=== PATIENT | male | born 1950 | race Caucasian/White ===

== ENCOUNTER 2016-08-24 08:01 | Day surgery (SDC) | payer OTHER ==
[~2016-08-24] VITALS: Ht 180.3 cm; Wt 81.0 kg
[~2016-08-24 08:01] MED LIST: ASPI-496 PO; BENA10TA2 PO; BUPIVACAINE/PF-EPI 0.5% 1:200K ONE; SIMV40TA3 PO
[2016-08-24 08:37] VITALS: BP 128/93
[2016-08-24] MEDS ORDERED: LACTATED RINGERS 1,000 ML IV SCH (08:42)
[2016-08-24 09:24] LABS: ASPARTATE AMINO TRANSFERASE 19 U/L (15-37); BLOOD UREA NITROGEN 13 mg/dL (7-18)
[2016-08-24] MEDS ORDERED: FENTANYL PF 250 MCG/5ML ONE (12:02)
[2016-08-24] MEDS ORDERED: OXYcodone 5 MG/5 ML ORAL.SOL UDC PO PRN (13:00)
[2016-08-24] MEDS ORDERED: FENTANYL PF 100 MCG/2ML IV PRN (13:00)
[2016-08-24] MEDS ORDERED: HYDROmorphone 1 MG/ML, 1ML IV PRN (13:00)
[2016-08-24] MEDS ORDERED: ACETAMINOPHEN 325 MG TABLET PO PRN (13:00)
[2016-08-24] MEDS ORDERED: METOPROLOL 1 MG/ML, 5ML IV PRN (13:00)
[2016-08-24] MEDS ORDERED: ALBUTEROL SULFATE 2.5 MG/3 ML NPPB PRN (13:00)
[2016-08-24] MEDS ORDERED: PROMETHAZINE 25 MG/ML, 1ML IV PRN (13:00)
[2016-08-24] MEDS ORDERED: hydrALAzine 20 MG/ML, 1ML IV PRN (13:00)
[2016-08-24] MEDS ORDERED: OXYcodone 5 MG/5 ML ORAL.SOL UDC ONE (14:20)
[2016-08-24] MEDS ORDERED: PROMETHAZINE 25 MG/ML, 1ML ONE (14:20)
[2016-08-24] MEDS ORDERED: ROCURONIUM 10 MG/ML ONE (16:11)
[2016-08-24] MEDS ORDERED: ONDANSETRON 2MG/ML, 2ML ONE (16:11)
[2016-08-24] MEDS ORDERED: CEFAZOLIN 1,000 MG ONE (16:11)
[2016-08-24] MEDS ORDERED: PROPOFOL 10 MG/ML, 20ML ONE (16:11)
[2016-08-24] MEDS ORDERED: KETOROLAC 30 MG/1 ML ONE (16:11)
[2016-08-24] MEDS ORDERED: DEXAMETHASONE 4 MG/ML, 1ML ONE (16:11)
== END 2016-08-24 15:40 ==
LOC: OUT 08:01 → EDSTATUS 12:00 → OUT 15:40
PROVIDERS: ATTEND Surgery
DX: C43.59 Malignant melanoma of other part of trunk (principal); L76.32 Postprocedural hematoma of skin and subcutaneous tissue following other procedure; Y83.8 Other surgical procedures as the cause of abnormal reaction of the patient, or of later complication, without mention of misadventure at the time of the procedure; Y82.8 Other medical devices associated with adverse incidents; F17.200 Nicotine dependence, unspecified, uncomplicated
CPT/HCPCS: 10140; 36415; 78195; 80053; 85025; 85610; 88305; 88307; 88342; 93005; A9541; J0690; J1100; J1885; J2405; J2550; J2704; J3010; J7120; G0461

== ENCOUNTER 2016-08-24 17:16 | Inpatient (IN) | payer OTHER, MEDICARE ==
[~2016-08-24] VITALS: Ht 180.3 cm; Wt 75.0 kg
[~2016-08-24 17:16] MED LIST changes: -BUPIVACAINE/PF-EPI 0.5% 1:200K ONE
[2016-08-24] MEDS ORDERED: SODIUM CHLORIDE 0.9%, 500ML IVBOLUS ONE (18:00)
[2016-08-24] MEDS ORDERED: THROMBIN 5,000 UNIT VIAL TP ONE (18:12)
[2016-08-24 18:15] VITALS: BP 120/81
[2016-08-24] MEDS ORDERED: SUCCINYLCHOLINE 20 MG/ML, 10ML ONE (18:29)
[2016-08-24] MEDS ORDERED: PROPOFOL 10 MG/ML, 20ML ONE (18:29)
[2016-08-24] MEDS ORDERED: ONDANSETRON 2MG/ML, 2ML ONE (18:29)
[2016-08-24] MEDS ORDERED: CEFAZOLIN 1,000 MG ONE (18:29)
[2016-08-24] MEDS ORDERED: FENTANYL PF 100 MCG/2ML ONE ×2 (18:30→19:11)
[2016-08-24] MEDS ORDERED: PROMETHAZINE 25 MG/ML, 1ML IV PRN (19:00)
[2016-08-24] MEDS ORDERED: HYDROmorphone 1 MG/ML, 1ML IV PRN (19:00)
[2016-08-24] MEDS ORDERED: hydrALAzine 20 MG/ML, 1ML IV PRN (19:00)
[2016-08-24] MEDS ORDERED: METOPROLOL 1 MG/ML, 5ML IV PRN (19:00)
[2016-08-24] MEDS ORDERED: OXYcodone 5 MG/5 ML ORAL.SOL UDC PO PRN (19:00)
[2016-08-24] MEDS ORDERED: ACETAMINOPHEN 325 MG TABLET PO PRN (19:00)
[2016-08-24] MEDS ORDERED: FENTANYL PF 100 MCG/2ML IV PRN (19:00)
[2016-08-24] MEDS ORDERED: MORPHINE SULFATE 4 MG/ML, 1ML IV PRN (21:00)
[2016-08-24] MEDS ORDERED: SODIUM CHLORIDE 0.9% 1,000 ML IV SCH (21:00)
[2016-08-24] MEDS ORDERED: HYDROcodone/APAP 5/325 TABLET PO PRN (21:00)
[2016-08-24] MEDS ORDERED: ONDANSETRON 2MG/ML, 2ML IV PRN (21:00)
== END 2016-08-24 22:19 | disposition home or self-care (01) | DRG 909 ==
LOC: ED 17:42 → EDIP 18:13 → 4NOR 20:30
PROVIDERS: ADMIT Surgery; ATTEND Surgery
PROC: 0W3K0ZZ Control Bleeding in Upper Back, Open Approach (ICD-10-PCS; principal; 2016-08-24 17:15)
DX: L76.32 Postprocedural hematoma of skin and subcutaneous tissue following other procedure (principal); Y83.8 Other surgical procedures as the cause of abnormal reaction of the patient, or of later complication, without mention of misadventure at the time of the procedure; Y92.89 Other specified places as the place of occurrence of the external cause
CPT/HCPCS: 99285; J0690; J2405; J2704; J3010; J0330; J7040

== ENCOUNTER 2017-02-08 10:55 | Emergency (ER) | payer MEDICARE, OTHER ==
[~2017-02-08] VITALS: Ht 180.3 cm; Wt 83.3 kg
[2017-02-08 11:53] LABS: BASOPHILS # (AUTO) 0.06 x10^3/uL (0-0.1); BASOPHILS % (AUTO) 1 % (0-1); EOSINOPHILS # (AUTO) 0.37 x10^3/uL (0-0.4); EOSINOPHILS % (AUTO) 4 % (1-7); LYMPHOCYTES # (AUTO) 2.56 x10^3/uL (1-3.4); LYMPHOCYTES % (AUTO) 27 % (22-44); MD NO; MEAN CORPUSCULAR HEMOGLOBIN 30.9 pg (27.5-34.5); MEAN CORPUSCULAR HGB CONC 33.6 g/dL (33.2-36.2); MEAN CORPUSCULAR VOLUME 92.2 fL (81-97); MEAN PLATELET VOLUME 7.9 fL (7.4-10.4); MONOCYTES # (AUTO) 0.69 x10^3/uL (0.2-0.8); MONOCYTES % (AUTO) 7 % (2-9); NEUTROPHILS # (AUTO) 5.94 x10^3/uL (1.8-6.8); NEUTROPHILS % (AUTO) 62 % (42-75); PLATELET COUNT 392 x10^3/uL (130-400); RED BLOOD COUNT 4.89 x10^6/uL (4.38-5.82); RED CELL DISTRIBUTION WIDTH 14.2 % (9.4-14.8)
[2017-02-08 12:04] LABS: ALBUMIN 4.2 g/dL (3.4-5.0); ANION GAP 6 mmol/L (5-15); CALCIUM 9.1 mg/dL (8.5-10.1); CHLORIDE 107 mmol/L (98-107); CREATININE 0.89 mg/dL (0.7-1.3)
[2017-02-08 12:08] LABS: TROPONIN I < 0.015 ng/mL (0.000-0.045)
[2017-02-08 13:19] VITALS: BP 132/84
== END 2017-02-08 13:21 | disposition home or self-care (01) ==
LOC: ED 11:27
DX: R07.89 Other chest pain (principal)
CPT/HCPCS: 36415; 71045; 80048; 82040; 84484; 85025; 93005; 99285

== ENCOUNTER 2017-10-03 05:11 | Day surgery (SDC) | payer MEDICARE, OTHER ==
[~2017-10-03] VITALS: Ht 180.3 cm; Wt 181.0 kg
[~2017-10-03 05:11] MED LIST changes: -BENA10TA2 PO; +BENA10TA4 PO
[2017-10-03] MEDS ORDERED: CEFAZOLIN PMX 1GM/50ML 50 ML ONE (05:27)
[2017-10-03] MEDS ORDERED: ONDANSETRON ODT 4 MG ONE (05:27)
[2017-10-03] MEDS ORDERED: LIDOCAINE 1%-EPI 1:100K, 30ML ONE (05:27)
[2017-10-03] MEDS ORDERED: MORPHINE SULFATE 4 MG/ML, 1ML ONE ×2 (05:27→07:06)
[2017-10-03] MEDS ORDERED: ONDANSETRON ODT 4 MG PO ONE (05:30)
[2017-10-03] MEDS ORDERED: MORPHINE SULFATE 4 MG/ML, 1ML IVPush PRN (05:30)
[2017-10-03] MEDS ORDERED: SODIUM CHLORIDE FLUSH 10ML SYR IVF ONE (05:30)
[2017-10-03] MEDS ORDERED: CEFAZOLIN PMX 1GM/50ML 50 ML IVPB ONE (05:30)
[2017-10-03] MEDS ORDERED: LIDOCAINE 1%-EPI 1:100K, 30ML INFIL ONE (05:30)
[2017-10-03 09:01] VITALS: BP 123/89
[2017-10-03] MEDS ORDERED: MIDAZOLAM 1 MG/ML, 2ML ONE (09:09)
[2017-10-03] MEDS ORDERED: FENTANYL PF 100 MCG/2ML ONE ×2 (09:10→12:10)
[2017-10-03] MEDS ORDERED: HYDROcodone/APAP 7.5-325MG/15ML UDC PO PRN (10:00)
[2017-10-03] MEDS ORDERED: MEPERIDINE/PF 25MG/0.5ML IVPush PRN (10:00)
[2017-10-03] MEDS ORDERED: LABETALOL 5MG/ML, 20ML IV PRN (10:00)
[2017-10-03] MEDS ORDERED: PROCHLORPERAZINE 5 MG/ML, 2ML IV PRN (10:00)
[2017-10-03] MEDS ORDERED: FENTANYL PF 100 MCG/2ML IV PRN (10:00)
[2017-10-03] MEDS ORDERED: HYDROmorphone 1 MG/ML, 1ML IV PRN (10:00)
[2017-10-03] MEDS ORDERED: DIPHENHYDRAMINE 50 MG/ML, 1ML IVPush PRN (10:00)
[2017-10-03] MEDS ORDERED: BUPIVACAINE/PF 0.5% ONE (10:11)
[2017-10-03 10:27] LABS: ALANINE AMINOTRANSFERASE 46 U/L (12-78); ANION GAP 7 mmol/L (5-15); CALCIUM 8.6 mg/dL (8.5-10.1); CHLORIDE 106 mmol/L (98-107); CREATININE 0.87 mg/dL (0.7-1.3)
[2017-10-03 10:29] LABS: ALKALINE PHOSPHATASE 63 U/L (45-117); BILIRUBIN,TOTAL 0.3 mg/dL (0.2-1.0); TOTAL PROTEIN 7.2 g/dL (6.4-8.2)
[2017-10-03] MEDS ORDERED: OXYcodone IR 5MG TABLET PO ONE (11:00)
[2017-10-03] MEDS ORDERED: KETOROLAC 30 MG/1 ML ONE (11:08)
[2017-10-03] MEDS ORDERED: BUPIVACAINE/PF 0.5% INFIL ONE (11:35)
[2017-10-03] MEDS ORDERED: DEXAMETHASONE 4 MG/ML, 1ML ONE (11:59)
[2017-10-03] MEDS ORDERED: ROCURONIUM 10MG/ML,5ML ONE (11:59)
[2017-10-03] MEDS ORDERED: NEOSTIGMINE 1 MG/ML, 10ML ONE (11:59)
[2017-10-03] MEDS ORDERED: ONDANSETRON 2MG/ML, 2ML ONE (11:59)
[2017-10-03] MEDS ORDERED: GLYCOPYRROLATE 0.2MG/1ML, 5ML ONE (11:59)
[2017-10-03] MEDS ORDERED: PROPOFOL 10 MG/ML, 20ML ONE (11:59)
[2017-10-03] MEDS ORDERED: SUCCINYLCHOLINE 20 MG/ML, 10ML ONE (11:59)
[2017-10-03] MEDS ORDERED: CEFAZOLIN 1,000 MG ONE (11:59)
== END 2017-10-03 14:35 | disposition home or self-care (01) ==
LOC: OR 09:21
PROVIDERS: ATTEND Orthopaedic Surgery
DX: S63.295A Dislocation of distal interphalangeal joint of left ring finger, initial encounter (principal); S66.195A Other injury of flexor muscle, fascia and tendon of left ring finger at wrist and hand level, initial encounter; S68.125A Partial traumatic metacarpophalangeal amputation of left ring finger, initial encounter; I10 Essential (primary) hypertension; E78.5 Hyperlipidemia, unspecified; Z85.820 Personal history of malignant melanoma of skin; X58.XXXA Exposure to other specified factors, initial encounter; Y93.89 Activity, other specified; Y92.89 Other specified places as the place of occurrence of the external cause; Y99.8 Other external cause status
CPT/HCPCS: 26236; 26350; 26785; 36415; 73140; 76000; 80053; 93005; J0330; J0690; J1100; J1885; J2250; J2405; J2704; J2710; J3010; J3490; Q0162

== ENCOUNTER 2017-10-24 10:29 | Day surgery (SDC) | payer OTHER ==
[~2017-10-24] VITALS: Ht 180.3 cm; Wt 81.0 kg
[2017-10-24] MEDS ORDERED: LACTATED RINGERS 1,000 ML IV SCH (10:59)
[2017-10-24] MEDS ORDERED: LIDOCAINE-MPF 1%, 2ML INFIL ONE (11:00)
[2017-10-24] MEDS ORDERED: MULT-658 PO (11:01)
[2017-10-24] MEDS ORDERED: CEPH-376 PO (11:02)
[2017-10-24 11:05] VITALS: BP 152/88
[2017-10-24] MEDS ORDERED: BUPIVACAINE/PF-EPI 0.5% 1:200K ONE (12:57)
[2017-10-24] MEDS ORDERED: BUPIVACAINE/PF 0.5% ONE (12:57)
[2017-10-24] MEDS ORDERED: FENTANYL PF 100 MCG/2ML ONE ×3 (13:09→14:19)
[2017-10-24] MEDS ORDERED: MIDAZOLAM 1 MG/ML, 2ML ONE (13:09)
[2017-10-24] MEDS ORDERED: DEXAMETHASONE 4 MG/ML, 1ML ONE (13:28)
[2017-10-24] MEDS ORDERED: PROPOFOL 10 MG/ML, 20ML ONE (13:28)
[2017-10-24] MEDS ORDERED: CEFAZOLIN 1,000 MG ONE (13:28)
[2017-10-24] MEDS ORDERED: ONDANSETRON 2MG/ML, 2ML ONE (13:28)
[2017-10-24] MEDS ORDERED: FENTANYL PF 100 MCG/2ML IV PRN (13:30)
[2017-10-24] MEDS ORDERED: ONDANSETRON 2MG/ML, 2ML IV PRN (13:30)
[2017-10-24] MEDS ORDERED: LABETALOL 5MG/ML, 20ML IV PRN (13:30)
[2017-10-24] MEDS ORDERED: ACETAMINOPHEN 325 MG TABLET PO PRN (13:30)
[2017-10-24] MEDS ORDERED: PROMETHAZINE 25 MG/ML, 1ML IV PRN (13:30)
[2017-10-24] MEDS ORDERED: MORPHINE SULFATE 4 MG/ML, 1ML IVPush PRN (13:30)
[2017-10-24] MEDS ORDERED: hydrALAzine 20 MG/ML, 1ML IV PRN (13:30)
[2017-10-24] MEDS ORDERED: EPINEPHRINE 1 MG/ML, 1ML ONE (13:32)
[2017-10-24] MEDS ORDERED: OXYcodone 5 MG/5 ML ORAL.SOL UDC ONE (14:19)
[2017-10-24] MEDS ORDERED: ACETAMINOPHEN 650 MG/20.3 ML UDC ONE (14:19)
[2017-10-24] MEDS: OXYcodone 5 MG/5 ML ORAL.SOL UDC PO PRN ×2 (14:20→15:10)
[2017-10-24] MEDS ORDERED: KETOROLAC 30 MG/1 ML ONE (15:48)
[2017-10-24] MEDS ORDERED: morphine SULFATE 10 MG/ML, 1ML ONE (15:48)
[2017-10-24] MEDS ORDERED: KETOROLAC 30 MG/1 ML IVPush SCH (16:00)
[2017-10-24] MEDS ORDERED: morphine SULFATE 10 MG/ML, 1ML IVPush PRN (16:00)
== END 2017-10-24 16:35 | disposition home or self-care (01) ==
LOC: OUT 10:29
PROVIDERS: ATTEND Orthopaedic Surgery
DX: T87.89 Other complications of amputation stump (principal); Y83.8 Other surgical procedures as the cause of abnormal reaction of the patient, or of later complication, without mention of misadventure at the time of the procedure; J44.9 Chronic obstructive pulmonary disease, unspecified; I10 Essential (primary) hypertension; F17.210 Nicotine dependence, cigarettes, uncomplicated
CPT/HCPCS: 26951; 87070; 87075; 87077; 87186; 87205; J0171; J0690; J1100; J1885; J2250; J2270; J2405; J2704; J3010; J3490; J7120